=== PATIENT | female | born 1960 | race Hispanic/Latino ===

== ENCOUNTER 2024-05-30 17:02 | Emergency (ER) | payer BC ==
--- OUTSIDE RECORDS SUMMARY | 2024-05-30 17:05 | XMS REPORT | Continuity of Care Document ---
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 350.1.13.13 1.2.7.2.686 [id number] [facility] 2021-12-27 00:00:00 2021-12-27 00:00:00 Orders Only Doctor Unassigned, Crum [facility] 1.2.840.114 350.1.13.10 4.2.7.2.[id number] [facility] 2021-12-23 14:45:00 2021-12-23 14:45:00 Outpatient ANTHONY BRAGA LEILA REINOSO [id number] [facility] 2021-12-13 00:00:00 2021-12-13 00:00:00 Outpatient ABRAHAM SALGADO LEILA REINOSO [id number] [facility] 2021-12-10 16:00:00 2021-12-10 16:30:00 Office Visit Abraham Salgado 1.2.840.114 350.1.13.13 1.2.7.2.686 [id number] [facility] 2021-12-09 00:00:00 2021-12-09 00:00:00 Outpatient SAM GUSMAN LEILA REINOSO [id number] [facility] 2021-12-06 13:45:00 2021-12-06 14:15:00 Office Visit Abraham Salgado 1.2.840.114 350.1.13.13 1.2.7.2.686 [id number] [facility] 2021-12-04 11:31:00 2021-12-04 13:59:00 Emergency X JANA MORRIS [facility] E[facility] [id number] [facility] 2021-12-04 11:31:00 2021-12-04 13:59:00 Emergency Jana Morris [facility] 1.2.840.114 350.1.13.10 4.2.7.2.[id number] [facility] 2021-06-07 13:30:00 2021-06-07 13:30:00 Telemedici Sunny [place] 1.2.840.114 350.1.13.13 1.2.7.2.686 [id number] [facility] 2021-06-07 08:15:00 2021-06-07 08:15:00 Outpatient SAM GUSMAN LEILA REINOSO [id number] [facility] 2021-05-26 18:15:00 2021-05-26 18:39:17 Outpatient R VASHTI MCCALL [facility] [id number] [facility] 2021-05-26 18:15:00 2021-05-26 18:30:00 Laboratory Only Only, Ang Db Test Cal [facility] 1.2.840.114 350.1.13.10 4.2.7.2.[id number] [facility] 2021-05-24 09:15:00 2021-05-24 09:15:00 Outpatient R UNKNOWN, ATTENDING [facility] [id number] [facility] 2021-05-17 15:10:00 2021-05-17 15:10:00 Outpatient LEILA REINOSO [id number] [facility] 2021-05-17 00:00:00 2021-05-17 00:00:00 Outpatient SMITH COLUNGA [id number] [facility] 2021-05-04 15:20:00 2021-05-04 15:20:00 Outpatient LEILA REINOSO [id number] [facility] 2021-03-02 08:09:50 2021-03-02 08:24:50 Office Visit Smith Colunga .2.840.114 350.1.13.13 1.2.7.2.686 [id number] [facility] 2021-03-01 00:00:00 2021-03-01 00:00:00 Outpatient SMITH COLUNGA [id number] [facility] 2021-02-23 09:00:00 2021-02-23 09:00:00 Outpatient SMITH COLUNGA [id number] [facility] 2021-02-18 00:00:00 2021-02-18 00:00:00 Outpatient AGA, SMITHMahogany REINOSO [id number] [facility] 2021-02-18 00:00:00 2021-02-18 00:00:00 Outpatient UZMA, SAM LEILA REINOSO [id number] [facility] 2021-02-11 08:45:00 2021-02-11 08:45:00 Outpatient AGA, SMITH REINOSO [id number] [facility] 2021-02-09 08:30:00 2021-02-09 08:30:00 Outpatient AGA, SMITH REINOSO [id number] [facility] 2021-02-02 08:50:00 2021-02-02 08:50:00 Outpatient LABLudy LEILA [facility]OS[facility] [id number] [facility] 2021-02-02 00:00:00 2021-02-02 00:00:00 Outpatient AGA, SMITH REINOSO [id number] [facility] 2021-02-02 00:00:00 2021-02-02 00:00:00 Outpatient AGA, SMITH [facility] [id number] [facility] 2021-01-29 00:00:00 2021-01-29 00:00:00 Outpatient UZMA, SAM LEILA [facility]OSO [id number] [facility] 2021-01-12 00:00:00 2021-01-12 00:00:00 Outpatient AGA, SMITH REINOSO [id number] [facility] 2021-01-07 08:15:00 2021-01-07 08:15:00 Outpatient AGA, SMITH REINOSO [id number] [facility] 2020-12-29 08:15:00 2020-12-29 08:15:00 Outpatient AGA, SMITH REINOSO [id number] [facility] 2020-12-29 08:00:00 2020-12-29 08:00:00 Outpatient AGA, SMITH REINOSO [id number] Leilaloretta Taylor 2020-12-29 00:00:00 2020-12-29 00:00:00 Outpatient SMITH COLUNGA LEILA [id number] Leila Taylor 2020-07-03 09:30:00 2020-07-03 09:30:00 Outpatient Jenae Cagle [facility] [id number] [facility] 2019-12-17 14:00:00 2019-12-18 17:00:00 Inpatient EL Jenae Cagle [facility] [id number] 71 [facility] 2019-09-10 13:15:00 2019-09-10 13:15:00 Outpatient Sundar [facility] [id number] [facility] 2019-09-10 10:27:27 2019-09-10 10:42:27 Telemedici ne Visit [facility] [place] 1.2.840.114 350.1.13.10 4.2.7.2.[id number] [facility] 2019-09-10 10:27:27 2019-09-10 10:42:27 Telemedici ne Visit [facility] [place] 1.2.840.114 350.1.13.10 4.2.7.2.686 [id number] 2019-09-10 00:00:00 2019-09-10 00:00:00 Letter (Out) [facility] [place] 1.2.840.114 350.1.13.10 4.2.7.2.[id number] [facility] 2019-09-10 00:00:00 2019-09-10 00:00:00 Letter (Out) [facility] [place] 1.2.840.114 350.1.13.10 4.2.7.2.686 [id number] 2019-08-28 14:15:00 2019-08-28 14:15:00 Outpatient R PREMA [facility] [id number] [facility] 2019-08-28 07:56:01 2019-08-28 08:11:01 Telemedici ne Visit Tigist Lloyd [facility] kajal [place] 1.2.840.114 350.1.13.10 4.2.7.2.[id number] [facility] 2019-08-28 07:56:01 2019-08-28 08:11:01 [facility]medici ne [facility] [place] 1.2.840.114 350.1.13.10 4.2.7.2.686 [id number] 198 [id number] 2019-08-28 00:00:00 2019-08-28 00:00:00 Letter (Out) [facility] [place] 1.2.840.114 350.1.13.10 4.2.7.2.[id number] [facility] 2019-08-28 00:00:00 2019-08-28 00:00:00 Letter (Out) [facility] [place] 1.2.840.114 350.1.13.10 4.2.7.2.686 [id number] 2019-08-22 00:00:00 2019-08-22 00:00:00 Telephone Tigist [facility] [place] 1.2.840.114 350.1.13.10 4.2.7.2.[id number] [facility] 2019-08-22 00:00:00 2019-08-22 00:00:[address] [facility] [place] 1.2.840.114 350.1.13.10 4.2.7.2.686 [id number] 2019-08-21 00:00:00 2019-08-21 00:00:00 Letter (Out) [facility] [place] 1.2.840.114 350.1.13.10 4.2.7.2.[id number] [facility] 2019-08-21 00:00:00 2019-08-21 00:00:00 Letter (Out) [facility] [place] 1.2.840.114 350.1.13.10 4.2.7.2.686 [id number] 2019-08-20 07:47:40 2019-08-20 08:02:40 Telemedici ne Visit Tigist [facility] k[facility]al [place] 1.2.840.114 350.1.13.10 4.2.7.2.[id number] [facility] 2019-08-20 07:47:40 2019-08-20 08:02:40 Telemedici ne [facility] [place] 1.2.840.114 350.1.13.10 4.2.7.2.686 [id number] 198 [id number] 2019-08-20 08:00:00 2019-08-20 08:00:00 Outpatient R TIGIST LLOYD [facility] [id number] [facility] 2019-08-20 00:00:00 2019-08-20 00:00:00 Letter (Out) Tigist Lloyd [facility] k[facility]al [place] 1.2.840.114 350.1.13.10 4.2.7.2.[id number] [facility] 2019-08-20 00:00:00 2019-08-20 00:00:00 Letter (Out) [facility] [place] 1.2.840.114 350.1.13.10 4.2.7.2.686 [id number] 198 [id number] 2019-08-17 10:38:39 2019-08-17 17:02:21 Urgent Care Rustam Acevedo, Attending [facility] [place] 1.2.840.114 350.1.13.10 4.2.7.2.[id number] [facility] 2019-08-17 10:38:39 2019-08-17 17:02:[address] [facility] 1.2.840.114 350.1.13.10 4.2.7.2.686 [id number] 2019-08-17 10:45:00 2019-08-17 10:45:00 Outpatient R UNKNOWN, ATTENDING [facility] [id number] [facility] 2019-08-17 00:00:00 2019-08-17 00:00:00 Orders Only Doctor Unassigned, Crum [facility] 1.2.840.114 350.1.13.10 4.2.7.2.[id number] [facility] Results Test Description Test Time Test Comments Results Resul t Comments Source - US HEAD AND NECK 2020-07-03 16:30:00 [facility] 1960 Sex: F Name: KEIRA VELASQUEZ [facility] : 1960 Age/S: 59 / F [id number] Unit #: [id number] Loc: [place] [address] Phys: Jenae Cagle III, MD Acct: [id number] Dis Date: Status: REG CLI PHONE #: [phone] Exam Date: 07/03/2020 0953 FAX #: Reason: THYROID CANCER EXAMS: CPT: [id number] US HEAD AND NECK 66638 Location code: H5 Thyroid Sonogram Indication: THYROID CANCER. Left lobectomy. Comparison: 12/17/2019. 02/27/2019 Technique: Realtime sonographic, pulse and color Doppler imaging of the thyroid was performed. Findings: Right lobe of the thyroid measures 4.8 x 1.9 x 1.6 cm. Left lobe removed. Isthmus measures 0.2 cm. Background parenchymal pattern: Normal. Masses or cysts: A 5 x 7 x 8 mm well-defined hypoechoic homogeneous hypervascular nodule is present in lower pole of the right lobe. Impression: 1. Left lobectomy. 2. Stable 7-8 mm nodule in the lower pole of the right lobe. at 1630 Reported and signed by: Jan Falcon M.D. CC: Buck Ramirez MD; Jenae Cagle III, MD Technologist: Veronica Manuel [facility] Date/Time: 07/03/2020 (1630) [email or web address] PAGE 1 Signed Report Name: KEIRA VELASQUEZ [place] : 1960 Age/S: 59 / F [id number] Unit #: [id number] Loc: [place] [address] Phys: Jenae Cagle III, MD Acct: [id number] Dis Date: Status: REG CLI PHONE #: [phone] Exam Date: 07/03/2020 0953 FAX #: Reason: THYROID CANCER EXAMS: CPT: [id number] US HEAD AND NECK 59029 (Continued) Orig Print D/T: S: 07/03/2020 (1634) Probe: PAGE 2 Signed Report - US HEAD AND NECK 2019-12-17 15:26:00 Name: KEIRA VELASQUEZ [place] : 1960 Age/S: 59 / F [address] Unit #: [id number] Loc: [place] [address] Phys: Jenae Cagle III, MD Acct: [id number] Dis Date: Status: REG CLI PHONE #: [phone] Exam Date: 12/17/2019 1420 FAX #: Reason: THYROID CANCER EXAMS: CPT: [id number] US HEAD AND NECK 70349 EXAM: - US HEAD AND NECK LOCATION: T 18 HISTORY: THYROID CANCER COMPARISON: None TECHNIQUE: Grayscale and color Doppler images. FINDINGS: Thyroid parenchyma: Homogeneous echotexture. The patient is post left lobectomy. Right lobe: measures 4.5 x 1.2 x 1.9 cm cm. Either within, or adjacent to the posterior aspect of the inferior pole, there is a hypoechoic nodule seen measuring 6 mm in size, essentially unchanged. Left lobe: Appears to be absent. No definite residual thyroid parenchyma or suspicious nodule noted in the left upper fossa. Isthmus: measures 0.3 cm. Lymph nodes: No concerning lymph nodes seen. IMPRESSION: Essentially unchanged subcentimeter nodule, either within or adjacent to the posterior aspect of the inferior pole of the right thyroid lobe. This could reflect a primary thyroid nodule, or potentially a parathyroid adenoma. Patient is post left thyroid lobectomy. No concerning lymph nodes seen. at 1526 Reported and signed by: Arnold Hamilton M.D. CC: Buck Ramirez MD; Jenae Cagle III, MD Technologist: Daniella Harper, RT(R),RDMS(AB) Trnscb Date/Time: 12/17/2019 (1526) [email or web address] PAGE 1 Signed Report Name: KEIRA VELASQUEZ [facility] : 1960 Age/S: 59 / F [address] Unit #: [id number] Loc: [place] [address] Phys: Jenae Cagle III, MD Acct: [id number] Dis Date: Status: REG CLI PHONE #: [phone] Exam Date: 12/17/2019 1420 FAX #: Reason: THYROID CANCER EXAMS: CPT: [id number] US HEAD AND NECK 47865 (Continued) Orig Print D/T: S: 12/17/2019 (1529) Probe: PAGE 2 Signed Report - USG NDL PLACEMENT (Bxg/Asp) 2019-04-11 09:34:00 Name: KEIRA VELASQUEZ : 1960 Age/S: 58 / F [address] Unit #: [id number] Loc: [place] [address] Phys: Jenae Cagle III, MD Acct: [id number] Dis Date: [facility] [phone] Exam Date: 04/05/2019 1515 FAX #: Reason: THYROID NODULE EXAMS: CPT: [id number] USG NDL PLACEMENT (Bxg/Asp) 77456 Examination: Ultrasound-guided thyroid FNA Location code: S17 turret lathe set up operator: Dr. Clark Tug Boat Engineer: None Sedation: None Anesthesia: 1% lidocaine locally Complications: None Discussion: Informed consent was obtained prior to the evaluation. Timeout was obtained. The area of concern was prepped and draped in the usual sterile fashion utilizing maximal sterile barrier technique. Preprocedure ultrasound confirms the presence of a 7 mm x 5 mm x 5 mm hypoechoic nodule posterior aspect. There may be small microcalcifications within. 1% lidocaine was infiltrated into the subcutaneous soft tissues overlying the area of interest. 25-gauge fine-needle aspirate was performed, 3 separate passes were obtained and forwarded to cytopathology. Patient tolerated this procedure with minimal discomfort. I was present during this procedure for a total of 5 minutes. Vital signs were monitored before and after the procedure by interventional radiology nursing staff. Patient was discharged home in good condition. Impression: Successful right lobe thyroid FNA. Pathology results are pending. at 0934 Reported and signed by: Randall Clark M.D. PAGE 1 Signed Report (CONTINUED) Name: KEIRA VELASQUEZ : 1960 Age/S: 58 / F [address] Unit #: [id number] Loc: [place] [address] Phys: Jenae Cagle III, MD Acct: [id number] Dis Date: Status: [facility] CLI PHONE #: [phone] Exam Date: 04/05/2019 1517 FAX #: Reason: THYROID NODULE EXAMS: CPT: [id number] USG NDL PLACEMENT (Bxg/Asp) 28967 (Continued) CC: Buck Ramirez MD; Jenae Cagle III, MD Technologist: Daniella Harper, RT(R),RDMS(AB) Trnscb Date/Time: 04/11/2019 (0934) [email or web address] PAGE 2 Signed Report Name: KEIRA VELASQUEZ [place] : 1960 Age/S: 58 / F [address] Unit #: [id number] Loc: [place] [address] Phys: Jenae Cagle III, MD Acct: [id number] Dis Date: Status: DEP CLI PHONE #: [phone] Exam Date: 04/05/2019 1515 FAX #: Reason: THYROID NODULE EXAMS: CPT: [id number] USG NDL PLACEMENT (Bxg/Asp) 78282 (Continued) Orig Print D/T: S: 04/11/2019 (0937) Probe: PAGE 3 Signed Report CYTOLOGY 2019-04-08 13:09:00 RUN DATE: 04/08/19 [facility] PAGE 1 RUN TIME: 1309 Specimen Inquiry RUN USER: INTERFACE WILMAN ENT: KEIRA VELASQUEZ LOC: [place] U #: [id number] AGE/SX: 58/F ROOM: RE04/05/19REG DR: Jenae Cagle III : 60 BED: DIS: STATUS: PRE CLI TLOC: SPEC #: [id number] RECD: 04/05/19 STATUS: CHARISMA JENKINS #: [id number] BLAINE: 04/05/[address]: Jenae Cagle III, MD ENTERED: 04/05/19 SP TYPE: CYTOLOGY OTHR DR: Buck Ramirez MD ORDERED: CB, FNA, FNA AD COPIES TO: Buck Ramirez MD [address] [place] [address] [place] [address] [facility] [address] [place] [id number] HISTOLOGY: TISSUE ID BLK PCS REE LEV PROCEDURE DISPOSITION ____ ___ ___ ___ THYROID GLAND A 1 2 PROCEDURES: CB (04/05/19) FNA (04/05/19) FNA AD (04/05/19) TISSUES: A. THYROID GLAND, NOS - RIGHT THYROID FNA CLINICAL HISTORY THYROID NODULE CPT CODES CPT CODE(S): 49616 , 91915 , 20512 , , , , FINAL DIAGNOSIS Thyroid, right, fine needle aspiration: INADEQUATE FOR INTERPRETATION DUE TO INSUFFICIENT FOLLICULAR CELLS AND OBSCURING BLOOD RECOMMEND REPEAT ASPIRATION IF CLINICALLY INDICATED CONTINUED ON NEXT PAGE RUN DATE: 04/08/19 [facility] PAGE 2 RUN TIME: 1309 Specimen Inquiry RUN USER: INTERFACE SPEC #: [facility]:[id number] PATIENT: KIERA VELASQUEZ #[id number] (Continued) ------- GROSS DESCRIPTION Right thyroid FNA. Three passes are performed. Received are 10 mL of bloody fluid and six smears. The smears are sent for Pap and Diff-Quik stains. One cell block is prepared. /ms Grossing performed at [facility] Pathology, [address] [place] [address], [address], [place] [address]. Hydraulic Dredge Operator: Arnav Leblanc M.D. MICROSCOPIC DESCRIPTION Right thyroid FNA. The smear preparations and cell block are scantily cellular. Rare follicular cells are identified. The largest cluster of cells is architecturally obscured by blood. Atypical and malignant cells are not identified. /kasie SPECIMEN ADEQUACY Specimen adequacy performed by Dr. Brown. ---- Signed SIGNATURE ON FILE Marcelina Mauro 04/08/19 1309 END OF REPORT - US HEAD AND NECK 2019-02-27 17:47:00 [place] : 1960 Age/S: 58 / F [address] Unit #: [id number] Loc: [place] [address] Phys: Jenae Cagle III, MD Acct: [id number] Dis Date: Status: REG CLI PHONE #: [phone] Exam Date: 02/27/2019 2573 FAX #: Reason: THYROID CANCER EXAMS: CPT: [id number] US HEAD AND NECK 40[address] LOCATION: T18 EXAM: - US HEAD AND NECK INDICATION: THYROID CANCER COMPARISON: CT of the chest January 04, 2019 TECHNIQUE: Real-time grayscale sonographic images of the thyroid are submitted for interpretation. FINDINGS: Patient is status post left thyroidectomy. Right thyroid lobe measures 5.2 x 1.5 x 1.5 cm. Hypoechoic solid nodule of the right thyroid lobe present measuring 7 x 5 x 6 mm. Punctate calcifications noted. The nodule is lobulated in size. Simple appearing left-sided lymph node along the strap muscles of the neck measuring 6 mm. IMPRESSION: Lobulated solid hypoechoic nodule in the right lobe of the thyroid consistent with TI-RADS category 5 nodule, highly suspicious. Based on size criteria 1 year follow-up is recommended. However with history of cancer, FNA may be more appropriate. at 2015 Reported and signed by: Vel Han M.D. CC: Buck Ramirez MD; Jenae Cagle III, MD Technologist: Veronica Manuel Trnmob Date/Time: 02/27/2019 (0240) [email or web address] PAGE 1 Signed Report Name: KEIRA VELASQUEZ : 1960 Age/S: 58 / F [address] Unit #: [id number] Loc: [place] [address] Phys: Jenae Cagle III, MD Acct: [id number] Dis Date: Status: REG CLI PHONE #: [phone] Exam Date: 02/27/2019 1718 FAX #: Reason: THYROID CANCER EXAMS: CPT: [id number] HEAD AND NECK 77360 (Continued) Orig Print D/T: S: 02/27/2019 (1750) Probe: PAGE 2 Signed Report - CT CHEST W/CONTRAST 2019-01-04 13:02:00 Name: KEIRA VELASQUEZ : 1960 Age/S: 58 / F [address] Unit #: [id number] Loc: [place] [address] Phys: Jenae Cagle III, MD Acct: [id number] Dis Date: Status: REG CLI PHONE #: [phone] Exam Date: 01/04/2019 0800 FAX #: Reason: MALIGNANT NEOPLASM OF THYROID GLAD EXAMS: CPT: [id number] CT CHEST W/CONTRAST 34371 EXAMINATION: - CT CHEST W/CONTRAST. LOCATION: T18. HISTORY: Malignant neoplasm of thyroid gland, history of thyroid surgery. COMPARISON: None. TECHNIQUE: CT of the chest is performed after intravenous administration of 100 cc of Isovue-300 as per protocol. One or more the following dose reduction techniques were used: Automated exposure control, adjustment of mA and/or kV according to patient size, and use of iterative reconstruction technique. FINDINGS: Patient is status post left thyroidectomy. Partially visualized right thyroid gland appears unremarkable. LYMPH NODES: No axillary, mediastinal or hilar bulky lymphadenopathy is identified. MEDIASTINUM: No mediastinal mass is noted. No aneurysmal dilatation of thoracic aorta. Atherosclerotic vascular calcifications. PLEURA/PERICARDIUM: No pericardial or pleural effusion is seen. LUNGS/AIRWAYS: The trachea and central bronchi are patent. No pneumothorax. No focal consolidation. Bibasilar dependent changes. OSSEOUS STRUCTURES: Visualized osseous structures demonstrate degenerative changes. UPPER ABDOMEN: Visualized portion of the upper abdominal viscera demonstrates too small to characterize low-attenuation structure in right hepatic dome. IMPRESSION: No CT evidence of metastatic disease within chest. at 1302 Reported and signed by: Yolanda Albert M.D. PAGE 1 Signed Report (CONTINUED) Name: KEIRA VELASQUEZ : 1960 Age/S: 58 / F [address] Unit #: [id number] Loc: [place] [address] Phys: Jenae Cagle III, MD Acct: [id number] Dis Date: Status: REG CLI PHONE #: [phone] Exam Date: 01/04/2019 0800 FAX #: Reason: MALIGNANT NEOPLASM OF THYROID GLAD EXAMS: CPT: [id number] CT CHEST W/CONTRAST 90014 (Continued) CC: Buck Ramirez MD; Jenae Cagle III, MD Technologist:Janeth Hoskins, RT(R)(CT); K CTDI: DLP: Trnscb Date/Time: 01/04/2019 (1302) [email or web address] Orig Print D/T: S: 01/04/2019 (1305) PAGE 2 Signed Report [id number] 07:47:00* Test Item Value Reference Range Interpretation Comme [facility] ISTAT-BUN (test code = BUNP) mg/dL 8-26 BEDSIDE [id number] 07:47:00* Test Item Value Reference Range Interpretation Comme [facility] BEDSIDE CREATININE (test cod e = CREATBED) mg/dL 0.6-1.3 [id number] 07:47:00* Test Item Value Reference Range Interpretation Comme nts ISTAT-GLUCOSE (test code = GLUP) 93 mg/dL 70-105 N [id number] 07:47:00* Test Item Value Reference Range Interpretation Comme nts ISTAT-BUN (test code = BUNP) 10 mg/dL 8-26 N BEDSIDE [id number] 07:47:00* Test Item Value Reference Range Interpretation Comme [facility] BEDSIDE CREATININE (test cod e = CREATBED) mg/dL 0.6-1.3 [id number] 07:47:00* Test Item Value Reference Range Interpretation Comme nts ISTAT-GLUCOSE (test code = GLUP) 93 mg/dL 70-105 N [id number] 07:47:00* Test Item Value Reference Range Interpretation Comme nts ISTAT-BUN (test code = BUNP) 10 mg/dL 8-26 N BEDSIDE [id number] 07:47:00* Test Item Value Reference Range Interpretation Comme nts BEDSIDE CREATININE (test cod e = CREATBED) 0.6 mg/dL 0.6-1.3 N [id number] 16:10:00 RUN DATE: 11/21/18 [facility] - LAB *LIVE* PAGE 1 RUN TIME: 1610 Specimen Inquiry RUN USER: INTERFACE PATIENT: KEIRA VELASQUEZ LOC: Indira U #: [id number] AGE/SX: 58/F ROOM: [facility] RE11/16/18REG DR: Jenae Cagle III : 60 BED: 1 DIS: 11/17/18 STATUS: DIS Daniel TLOC: - SPEC #:[id number] RECD: 11/16/18 STATUS: CHARISMA JENKINS #: [id number] BLAINE: 11/16/[address]: Jenae Hanley MD ENTERED: 11/16/18 SP TYPE: SURG OTHR DR: Buck Ramirez MD ORDERED: SURG PATHLVL 5 COPIES TO: Buck Ramirez MD [address] [place], [place] [address] [place] [id number] [facility] [address] [place] [address] HISTOLOGY: TISSUE ID BLK PCS REE LEV PROCEDURE DISPOSITION ____ ___ ___ ___ THYROID GLAND A 1 1 PROCEDURES: SURG PATH LVL 5 (11/16/18) TISSUES: A. THYROID GLAND, NOS- LEFT THYROID LOBE CLINICAL HISTORY GOITER -E04.9; THYROID NODULE - E04.1 CPT CODES CPT CODE(S): 23934 , 55643 , , , , , FINAL DIAGNOSIS Thyroid, left, lobectomy: FOLLICULAR THYROID CARCINOMA, ENCAPSULATED ANGIOINVASIVE (pT2) 3 CM GREATEST DIMENSION CONFINED TO THYROID, MARGINS NEGATIVE CONTINUED ON NEXT PAGE RUN DATE: 11/21/18 [facility] - LAB *LIVE* PAGE 2 RUN TIME: 1610 Specimen Inquiry RUN USER: INTERFACE SPEC #: [id number] PATIENT: KEIRA VELASQUEZ #[id number] (Continued) FROZEN SECTION DIAGNOSIS Left thyroid lobe: NEGATIVE FOR PAPILLARY THYROID CARCINOMA <SS> GROSS DESCRIPTION Leftthyroid lobe. Received fresh is an 18.1 gram partial thyroidectomy specimen consisting of a left thyroid lobe, 4.0 x 3.0 x 2.5 cm. Ink code: Blue - entire capsular surface of left lobe The thyroid lo be is serially sectioned into twelve (12) slices and reveals a well- circumscribed, slightly bulgingtan-brown nodule, 3.0 x 3.0 x 2.5 cm, in slices #4-11. The nodule grossly appears encapsulated and closely abuts the adjacent capsular surface but is approximately 0.2 cm from the inked resection margin. There is a central cyst-like space within the nodule and contains dark red-brown blood clots. Anarrow rim of the dark red-brown thyroid tissue is compressed along the periphery and exhibits the usual beefy consistency. Plastic Press Molder section of the nodule is frozen as FSA and submitted for permanent section as A1. The specimen is entirely submitted. ba/nr Section code: A1 FSA A2 Superior margin, slice #1, perpendicular sections A3 Thyroid tissue, slices #2 A4-A5 Thyroid tissue, slice #3 A6-A7 Juan nodule, slice #4 A8-A9 Juan nodule, slice #5 A10-A11 Juan nodule, slice #6 A12-A13 Juan nodule,slice #7 A14-A15 Juan nodule, slice #8 A16-A17 Juan nodule, slice #9 A18-A19 Juan nodule, slice #10 A20-A21 Juan nodule, slice #11 A22 Inferior margin, slice #12, perpendicular sections Grossing performed at [facility] Pathology, [facility], [address], [place] [address]. Hydraulic Dredge Operator: Arnav Leblanc M.D. MICROSCOPIC DESCRIPTION Left thyroid lobe. Sections demonstrate thyroid tissue with admixed small and large thyroid follicles. A prominent nodule is identified in the middle of thethyroid. The nodule demonstrates a prominent fibrous capsule, however some areas demonstrate a relatively thin fibrous capsule. Careful examination of the thyroid capsule demonstrates 3 small foci ofvascular invasion. The tumor consists of thyroid follicles and follicular cells. The cells demonstrate no papillary cytologic features. The majority of the tumor demonstrates a solid architecture with occasional thyroid follicles. The cytology of the cells is CONTINUED ON NEXT PAGE -RUN DATE: 11/21/18[facility] - LAB *LIVE* PAGE 3 RUN TIME: 1610 Specimen Inquiry RUN USER: INTERFACE ---- --------SPEC #: [facility]:[id number] PATIENT: KEIRA VELASQUEZ #[id number] (Continued) MICROSCOPIC DESCRIPTION (Continued) similar andthe solid areas and areas demonstrating follicle formation. 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 The nodule measures 3 cm in greatest dimension. No extrathyroidal extension is identified. Grossly the nodule is well encapsuled by thyroid tissue, however sectioning through the specimen cause the capsule to bulge generating some sections without surrounding thyroid tissue, however no portions of nodule extends the thyroid margin grossly. STAGING: Anatomic site of cancer: Left thyroid Histologic type: follicular carcinoma Grade (G): Tumor size (cm): 3 x 3 x 2.5 cm Primary Tumor (T): pT2 Lymph Node (N): Distant Metastasis (M): Stage Grouping: Stage I Surgical Margins: Negative SYNOPTIC REPORT Procedure: Left thyroid lobectomy Tumor focality: Unifocal Tumor site: Left lobe Tumor size: 3 x 3 x 2.5 cm Histologic type: Follicular carcinoma, encapsulated a ngioinvasive Margins: Uninvolved by carcinoma Angioinvasion: Present, focal Lymphatic invasion: Notidentified Extrathyroidal extension: Not identified Regional lymph nodes: No lymph nodes submitted Primary tumor: pT2 Signed SIGNATURE ON FILE Cali Brown 11/21/18 [id number] END OF REPORT KALA [id number] 17:26:00* Test Item Value Reference Range Interpretation Comme nts PT PATIENT (test code = PTP) 10.9 SECONDS 9.3-12.9 N INTERNATIONAL NORMAL RATIO (test code = INR) 0.95 INR Unit 0.8-1.2 N THROMBOPLASTIN TIME [id number] 17:26:00* Test Item Value Reference Range Interpretation Comme nts THROMBOPLASTIN TIME PARTIAL (test code = PTT) 42.2 SECONDS 26-35 H CBC W/AUTO [id number] 17:20:00* Test Item Value Reference Range Interpretation Comme nts WHITE BLOOD CELL (test code = WBC) 5.9 K/mm3 3.5-11.0 N RED BLOOD CELL (test code = RBC) 3.65 M/mm3 4.70-6.10 L HEMOGLOBIN (test code = HGB) 11.9 G/DL 10.4-14.9 N HEMATOCRIT (test code = HCT) 35.6 % 31.5-44.1 N MEAN CELL VOLUME (test code = MCV) 97.5 Fl 84.5-98.6 N MEAN CELL HGB (test code = MCH) 32.6 pg 27.0-34.2 N MEAN CELL HGB CONCETRATION ( test code = MCHC) 33.4 G/DL 31.5-34.0 N RED CELL DISTRIBUTION WIDTH (test code = RDW) 12.0 SD 11.5-14.5 N PLATELET COUNT (test code = PLT) 230.0 K/mm3 150-450 N MEAN PLATELET VOLUME (test c ode = MPV) 8.80 fL 7.0-10.5 N NEUTROPHIL % (test code = NT%) 63.0 % 40-76 N LYMPHOCYTE % (test code = LY%) 27.0 % 20.5-51.1 N MONOCYTE % (test code = MO%) 7.1 % 1.7-9.3 N EOSINOPHIL % (test code = EO%) 2.4 % 0.0-6.0 N BASOPHIL % (test code = BA%) 0.5 % 0.0-2.0 N NEUTROPHIL # (test code = NT#) 3.73 K/mm3 1.8-7.6 N LYMPHOCYTE # (test code = LY#) 1.6 K/mm3 0.6-3.2 N MONOCYTE # (test code = MO#) 0.4 K/mm3 0.3-1.1 N EOSINOPHIL # (test code = EO#) 0.1 K/mm3 0.0-0.4 N BASOPHIL # (test code = BA#) 0.0 K/mm3 0.0-0.1 N MANUAL DIFF REQUIRED (test c ode = MDIFF) NO DIFF/SCN CRITERIA History and Physical Notes Date/Time Note Provider Source 2023 10:10:14 Keira Velasquez is a 62 year old female with a history of colon polyps. Last colonoscopy done over 5 years ago in [place] which showed polyps--told to repeat in 5 years. The patient presents for a follow up examination. Denies any GI symptoms. Past Medical History: Diagnosis Date H/O colonoscopy 2017 colitis H/O partial thyroidectomy History of colonoscopy 2011 Hyperlipidemia Past Surgical History: Procedure Laterality Date BX OF CERVIX W/SCOPE, LEEP COLONOSCOPY, FLEXIBLE; DIAGNOSTIC, INCLUDING COLLECTION OF SPECIMEN(S) BY BRUSHING OR WASHING, WHEN 2017 polyp - biopsied and not cancerous - was removed DIVISION OF [place] [facility] ARTHROSCOPY 1995 Family History Problem Relation Name Age of Onset Hypertension Mother Pancreatic Cancer Mother Hypertension Father Coronary Arterial Disease Father Colon Cancer Sister Breast Cancer Sister 50 Family history of colon cancer: yes Social History Socioeconomic History Marital status: Spouse name: Not on file Number of children: Not on file Years of education: Not on file Highest education level: Not on file Occupational History Not on file Tobacco Use Smoking status: Former Smokeless tobacco: Not on file Substance and Sexual Activity Alcohol use: Not on file Drug use: Not on file Sexual activity: Not on file Other Topics Concern Not on file Social History Narrative Not on file Social Determinants of Health Financial Resource Strain: Not on file Food Insecurity: Not on file Transportation Needs: Not on file Physical Activity: Not on file Stress: Not on file Social Connections: Not on file Intimate Partner Violence: Not on file Housing Stability: Not on file Review Of Symptoms Chest Pain: no Shortness of Breath: no Headaches: no Joint Pain: no Fever: no Chills: no Rash: no Weight Loss:no PHYSICAL EXAMINATION: BP 102/64 | Pulse 72 | Temp 98.1 ?F (36.7 ?C) (Oral) | Resp 18 | Ht 5' 4" (1.626 m) | Wt 162 lb 3.2 oz (73.6 kg) | BMI 27.84 kg/m? GENERAL APPEARANCE: Adult No acute distress Sclera anicteric RESPIRATORY (LUNGS/CHEST): Lungs are clear to auscultation bilaterally CARDIOVASCULAR: Regular rate and rhythm GASTROINTESTINAL: Abdomen is Soft, not distended. No palpable hepatosplenomegaly or masses. No ascites. No rebound, tenderness, guarding or rigidity. Bowel sounds are present and appeared normal. EXTREMITIES: No edema NEUROLOGICAL/PSYCHIATRIC: Normal affect. Alert oriented x3. Grossly nonfocal. IMPRESSION: History of colon polyps PLAN: Colonoscopy--procedure, risks and bowel preparation discussed with patient. T [facility]
--- NOTE | 2024-05-30 18:17 | RAD REPORT ---
EXAMINATION: ONE VIEW CHEST XR CLINICAL INDICATION: CHEST PAIN TECHNIQUE: Frontal chest projection is submitted. Examination is limited by patient positioning and t echnique. COMPARISON: 06/28/2012 FINDINGS: The lungs are well inflated and clear. The heart is upper limit of normal in size. No displaced fract ures identified. IMPRESSION: No acute intrathoracic abnormalities.
[2024-05-30 18:23] LABS: ALT/SGPT 24 U/L (13-56); AST/SGOT 18 U/L (15-37); Albumin 4.3 g/dL (3.4-5.0); Albumin/Globulin Ratio 1.2 (1.1-1.8); Alkaline Phosphatase 105 U/L (45-117); Anion Gap 9.3 mEq/L (5.0-15.0); BUN Blood Urea Nitrogen 9 mg/dL (7-18); Bicarbonate 28 mEq/L (21-32); Bilirubin Direct < 0.2 mg/dL (0-0.2); Bilirubin Indirect, Calculated 0.6 mg/dL (0.2-0.8); Bilirubin Total 0.8 mg/dL (0.2-1.0); Globulin 3.6 g/dL (2.3-3.5); Glomerular Filtration Rate 98 ml/min (=/>90); Glucose Level 94 mg/dL (74-106); Magnesium 2.1 mg/dL (1.6-2.4); NT PRO-BNP 171 pg/mL (<125); Potassium 3.3 mEq/L (3.5-5.1); Protein, Total 7.9 g/dL (6.4-8.2); Sodium Level 138 mEq/L (136-145); Troponin High Sensitivity 5.4 pg/mL (<58.9)
[2024-05-30 18:28] LABS: PT Prothrombin Time 11.2 SECONDS (9.4-12.5)
[2024-05-30 18:34] LABS: Absolute Eosinophils 0.2 K/uL (0-0.5); Absolute Lymphocytes (CBC) 1.2 K/uL (0.7-4.9); Absolute Monocytes 0.4 K/uL (0.1-1.3); Absolute Neutrophil 5.1 K/uL (1.8-8.0); Basophils % 0.5 % (0-1.3); Eosinophils % 2.2 % (0-4.4); Hematocrit 38.7 % (36.0-45.0); Hemoglobin 13.6 g/dL (12.0-15.0); Lymphocytes % 17.5 % (15.3-44.8); MCHC 35.2 g/dL (32.0-36.0); MCV 93.8 fL (80-100); Neutrophils % 73.8 % (41.7-73.7); Nucleated Red Blood Cells % 0.1 % (0-0); Platelets 318 thou/uL (152-406); RBC Red Blood Cell Count 4.12 M/uL (3.86-4.86); Red Cell Distribution Width 12.9 % (12.1-15.2)
--- NOTE | 2024-05-30 18:59 | RAD REPORT ---
EXAM: CTA of the chest, abdomen and pelvis HISTORY: Chest pain and back pain DISSECTION COMPARISON: None TECHNIQUE: Multiple contiguous axial images were obtained a CTA of the chest and abdomen with contras t per aortic dissection protocol. This involves 3D reconstructions, MIPs, volume rendered images and/or shaded surface rendering. One or more of the following dose reduction techniques were used: Au tomated exposure control, adjustment of the mA and/or kV according to patient size, and/or iterative reconstruction. Unless otherwise specified, incidental findings do not require dedicated im aging follow-up. Sagittal and coronal 3-D MIP reformats were performed. FINDINGS: PULMONARY ARTERIES: Normal in caliber without filling defects to suggest pulmonary emboli. ASCENDING THORACIC AORTA: Normal caliber without evidence of dissection or aneurysmal dilatation. DESCENDING THORACIC AORTA: Normal caliber without evidence of dissection or aneurysmal dilatation. ABDOMINAL AORTA: Normal caliber without evidence of dissection or aneurysmal dilatation. CELIAC TRUNK: Patent. SMA: Patent LEXIE: Patent RENAL ARTERIES: Bilateral single renal arteries without significant atherosclerotic disease. MEDIASTINUM: No hilar or mediastinal lymphadenopathy. LUNGS: No focal infiltrates or masses. PLEURAL SPACE: No pleural effusion or pneumothorax. LIVER: Fatty liver.. SPLEEN: Unremarkable. PANCREAS: Unremarkable. KIDNEYS: Unremarkable. ADRENALS: Unremarkable. BOWEL: Unremarkable. RETROPERITONEUM: No lymphadenopathy. BONES: Unremarkable ADDITIONAL FINDINGS: Calcified uterine fibroid. IMPRESSION: No evidence of thoracic or abdominal aortic aneurysm or dissection.
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
[2024-05-30] MEDS ORDERED: POTASSIUM 25 MEQ EFFERV TAB ONE (20:55)
[2024-05-31 03:25] VITALS: O2SAT 100
[2024-05-31 03:27] VITALS: BP 130/85; TEMP 98.1
--- NOTE | 2024-05-31 12:41 | EKG ---
Test Date: 2024-05-30 Test Time: 17:18:14 Piggery Worker: MICHELLE MEASUREMENT RESULTS: Intervals: Rate: 64 LA: 174 QRSD: 90 QT: 420 QTc: 433 [place]: P: 44 LA: 174 QRS: 14 T: 32 INTERPRETIVE STATEMENTS: Normal sinus rhythm Normal ECG No previous ECG available for comparison Electronically Signed On 05-31-24 12:40:17 WORKERS COMPENSATION CONSULTANT by Jaya Cantrell
--- NOTE | 2024-06-10 11:23 | EKG ---
Test Date: 2024-05-30 Test Time: 20:15:37 Clinical Laboratory Aides Teacher: JOHNSON MEASUREMENT RESULTS: Intervals: Rate: 74 MD: 374 QRSD: 78 QT: 366 QTc: 406 [place]: P: 38 MD: 374 QRS: -15 T: 35 INTERPRETIVE STATEMENTS: Sinus rhythm with 1st degree AV block Otherwise normal ECG Compared to ECG 05/30/2024 20:05:34 First degree AV block now present Electronically Signed On 06-10-24 11:16:17 DIAMOND BROKER by Jaya Cantrell
--- NOTE | 2024-06-10 11:23 | EKG ---
Test Date: 2024-05-30 Test Time: 20:05:34 Signal Supervisor: JOHNSON MEASUREMENT RESULTS: Intervals: Rate: 61 OR: 176 QRSD: 92 QT: 432 QTc: 434 [place]: P: 49 OR: 176 QRS: 26 T: 43 INTERPRETIVE STATEMENTS: Normal sinus rhythm Normal ECG Compared to ECG 05/30/2024 17:18:14 No significant changes Electronically Signed On 06-10-24 11:16:19 EXOTIC DANCER by Jaya Cantrell
== END 2024-05-30 21:16 | disposition home or self-care (01) ==
LOC: ER 17:02
DX: R07.9 Chest pain, unspecified (principal); E78.00 Pure hypercholesterolemia, unspecified; Z88.5 Allergy status to narcotic agent
CPT/HCPCS: 93005 ×3; 85025; 80048; 36415; 83735; 85610; 80076; 84484 ×2; 83880; 71275; 74175; 71045; 99285; Q9967